=== PATIENT | male | born 1985 | race Caucasian/White ===

== ENCOUNTER 2018-04-23 19:15 | Emergency (ER) | payer OTHER ==
[~2018-04-23] VITALS: Ht 180.3 cm; Wt 97.3 kg
[2018-04-23] MEDS ORDERED: SODIUM CHLORIDE FLUSH 10ML SYR IVF ONE (19:30)
[2018-04-23] MEDS ORDERED: ONDANSETRON 2MG/ML, 2ML IVPush ONE (19:30)
[2018-04-23] MEDS ORDERED: ONDANSETRON 2MG/ML, 2ML ONE (19:43)
[2018-04-23 19:44] LABS: BASOPHILS # (AUTO) 0.04 x10^3/uL (0-0.1); BASOPHILS % (AUTO) 0 % (0-1); EOSINOPHILS # (AUTO) 0.01 x10^3/uL (0-0.4); EOSINOPHILS % (AUTO) 0 % (1-7); LYMPHOCYTES # (AUTO) 1.77 x10^3/uL (1-3.4); LYMPHOCYTES % (AUTO) 15 % (22-44); MD NO; MEAN CORPUSCULAR HEMOGLOBIN 29.4 pg (27.5-34.5); MEAN CORPUSCULAR HGB CONC 33.9 g/dL (33.2-36.2); MEAN CORPUSCULAR VOLUME 86.8 fL (81-97); MEAN PLATELET VOLUME 8.4 fL (7.4-10.4); MONOCYTES # (AUTO) 1.09 x10^3/uL (0.2-0.8); MONOCYTES % (AUTO) 9 % (2-9); NEUTROPHILS # (AUTO) 9.24 x10^3/uL (1.8-6.8); NEUTROPHILS % (AUTO) 76 % (42-75); PLATELET COUNT 274 x10^3/uL (130-400); RED BLOOD COUNT 5.26 x10^6/uL (4.38-5.82); RED CELL DISTRIBUTION WIDTH 14.7 % (9.4-14.8)
[2018-04-23 19:53] LABS: ALBUMIN 4.6 g/dL (3.4-5.0); ANION GAP 13 mmol/L (5-15); CALCIUM 9.5 mg/dL (8.5-10.1); CHLORIDE 98 mmol/L (98-107)
[2018-04-23 19:57] LABS: ALANINE AMINOTRANSFERASE 68 U/L (12-78); ALKALINE PHOSPHATASE 74 U/L (45-117); BILIRUBIN,TOTAL 1.1 mg/dL (0.2-1.0); CREATININE 0.87 mg/dL (0.7-1.3); TOTAL PROTEIN 8.1 g/dL (6.4-8.2)
[2018-04-23] MEDS ORDERED: MAALOX/HYOSCYAMINE/LIDOCAINE 45 ML BTL ONE (20:41)
[2018-04-23] MEDS ORDERED: FAMOTIDINE 20 MG/2 ML ONE (20:41)
[2018-04-23] MEDS ORDERED: MORPHINE SULFATE 4 MG/ML, 1ML ONE (20:41)
[2018-04-23] MEDS ORDERED: METOCLOPRAMIDE 5 MG/ML, 2ML ONE (20:41)
[2018-04-23] MEDS ORDERED: DOXY25TA45 PO (20:50)
[2018-04-23] MEDS ORDERED: FAMOTIDINE 20 MG/2 ML IVP ONE (21:00)
[2018-04-23] MEDS ORDERED: SODIUM CHLORIDE 0.9% 1,000ML IVBOLUS ONE (21:00)
[2018-04-23] MEDS ORDERED: MAALOX/HYOSCYAMINE/LIDOCAINE 45 ML BTL PO ONE (21:00)
[2018-04-23] MEDS ORDERED: MORPHINE SULFATE 4 MG/ML, 1ML IVPush PRN (21:00)
[2018-04-23] MEDS ORDERED: METOCLOPRAMIDE 5 MG/ML, 2ML IVPush ONE (21:00)
[2018-04-23 21:05] LABS: MICROSCOPIC AUTO
[2018-04-23 21:14] LABS: CULTURE INDICATED? NO
[2018-04-23 21:54] VITALS: BP 133/83
== END 2018-04-23 21:58 | disposition home or self-care (01) ==
LOC: ED 21:55
DX: K29.00 Acute gastritis without bleeding (principal)
CPT/HCPCS: 36415; 76700; 80053; 81001; 83690; 85025; 93005; 96361; 96374; 96375; 99285; J2405; J2765; J7030; S0028